=== PATIENT | female | born 1980 | race Caucasian/White ===

== ENCOUNTER 2019-07-12 06:37 | Day surgery (SDC) | payer OTHER ==
[2019-07-12] MEDS ORDERED: Lactated Ringers 1,000 ML IV SCH (07:00)
[2019-07-12] MEDS ORDERED: Lactated Ringers 1,000 ML IV ONE ×2 (07:05→09:13)
[2019-07-12] MEDS ORDERED: Lugol's Solution ONE (07:35)
[2019-07-12] MEDS ORDERED: SUBLIMAZE 100 MCG/2 ML ONE (08:30)
[2019-07-12] MEDS ORDERED: DIPRIVAN 200 MG/20 ML IV ONE (08:30)
[2019-07-12] MEDS ORDERED: TORAdol 30 mg Injection ONE (08:36)
[2019-07-12] MEDS ORDERED: Decadron 4 MG INJ ONE (08:36)
[2019-07-12] MEDS ORDERED: XYLOCAINE 1%/Epi 1:100000 MDV 20 ML ONE (08:36)
[2019-07-12] MEDS ORDERED: Zofran 4 MG/2 ML VIAL ONE (08:36)
[2019-07-12] MEDS ORDERED: Ephedrine Sulfate 50 MG/ML ONE (09:08)
[2019-07-12] MEDS ORDERED: ROBINUL ONE (09:13)
[2019-07-12 10:29] VITALS: BP 131/76; PULSE 86; O2SAT 99
--- NOTE | 2019-07-13 08:27 | OP ---
SURGERY DATE/TIME: 07/12/2019 0856 PREOPERATIVE DIAGNOSIS: Severe cervical dysplasia DANICA-3. POSTOPERATIVE DIAGNOSIS: Severe cervical dysplasia DANICA-3. PROCEDURE: Colposcopically-directed LEEP procedure. SURGEON: Kevin Dodson D.O. HVAC TECHNICIAN RESIDENTIAL: tool technician. ANESTHESIA: General. ESTIMATED BLOOD LOSS: Minimal. COMPLICATIONS: None. INDICATIONS: The risks, benefits, indications and alternatives of the procedure were reviewed with the patient prior to procedure. The patient understood the risk of infection, bleeding, bowel injury, bladder injury, ureteral injury, cervical incompetence, pelvic infection, anorgasmia, labor and possible miscarriage associated with the surgery and desires to have this surgery as a possible need to alleviate her current medical condition. DESCRIPTION OF PROCEDURE AND FINDINGS: At this point the patient is taken to the operating room, given general sedation, placed in dorsal lithotomy position. Prepped and draped in usual sterile fashion. A coated speculum is then placed in the patient's vagina and the cervix is then injected circumferentially with 1% lidocaine with epinephrine. Approximately 8 cc of lidocaine with epinephrine was used at 12:00, 3:00, 6:00 and 9:00 position. From this point under colposcopic guidance, the loop instrument was then used to excise the ectocervical tissue from a right to left motion for a depth approximately 3 to 5 mm of ectocervical tissue was excised without complication. After the ectocervical tissue was excised, an additional 2 to 3 mm of endocervical tissue was excised in similar fashion. From this point the loop gear hobber operator ball was placed on the surface of the cervix to coagulate any residual bleeding. At this point hemostasis was obtained. From this point Monsel solution was placed on the surface of the cervix to further hemostasis. From this point all instruments were removed from the patient's vaginal region. The patient was then taken out of the dorsal lithotomy position, was taken out of anesthesia and was then taken to the recovery room in stable condition. All instruments and laps were accounted for x2.
== END 2019-07-12 10:35 | disposition home or self-care (01) ==
LOC: SDC 06:37
PROVIDERS: ATTEND Obstetrics & Gynecology
DX: D06.9 Carcinoma in situ of cervix, unspecified (principal)
CPT/HCPCS: 57460; 84703; 88305; J1100; J1885; J2405; J2704; J3010; A9270-GY

== ENCOUNTER 2019-09-06 13:50 | Observation (INO) | payer OTHER ==
[2019-09-13] MEDS ORDERED: Lactated Ringers 1,000 ML IV ONE ×3 (07:17→11:33)
[2019-09-13] MEDS: Lactated Ringers 1,000 ML IV SCH ×2 (08:24→15:35)
[2019-09-13] MEDS ORDERED: CEFAZOLIN 2 GM-D5W BAG** 2 GM/50 ML ML IV SCH (08:30)
[2019-09-13 08:38] LABS: Hematocrit 41.1 % (35-47); Hemoglobin 13.8 gm/dl (12.0-16.0)
[2019-09-13 09:28] LABS: ABO TYPING A; Antibody Screen NEGATIVE (NEGATIVE); RH TYPING POSITIVE
[2019-09-13] MEDS ORDERED: DIPRIVAN 200 MG/20 ML IV ONE (09:46)
[2019-09-13] MEDS ORDERED: Quelicin Fliptop 200 MG/10 ML ONE (09:46)
[2019-09-13] MEDS ORDERED: Zemuron 100 MG/10 ML ONE ×2 (09:46→11:02)
[2019-09-13] MEDS ORDERED: SUBLIMAZE 100 MCG/2 ML ONE ×2 (09:47→12:16)
[2019-09-13] MEDS ORDERED: Decadron 4 MG INJ ONE (11:49)
[2019-09-13] MEDS ORDERED: BRIDION 200MG/2ML IV ONE (11:49)
[2019-09-13] MEDS ORDERED: TORAdol 30 mg Injection ONE (11:49)
[2019-09-13] MEDS ORDERED: Zofran 4 MG/2 ML VIAL ONE (11:49)
[2019-09-13] MEDS ORDERED: DILAUDID 2 MG INJECTION ONE (12:08)
[2019-09-13] MEDS ORDERED: Compazine 10 MG/2 ML ONE (12:09)
[2019-09-13] MEDS ORDERED: MORPHINE SULFATE 2 MG INJ IV PRN (12:57)
[2019-09-13] MEDS ORDERED: MORPHINE SULFATE 4 MG INJ IV PRN (12:57)
[2019-09-13] MEDS ORDERED: Zofran 4 MG/2 ML VIAL IV PRN (13:13)
[2019-09-13] MEDS: Reglan 10 MG/2 ML IV SCH ×2 (13:34→22:35)
[2019-09-13 14:36] LABS: Appearance CLEAR (CLEAR); Bilirubin NEGATIVE (NEGATIVE); Blood NEGATIVE Ery/ul (0-5); Epithelial Cells RARE /HPF (FEW); Glucose NEGATIVE (NEGATIVE); Ketones NEGATIVE (NEGATIVE); Leukocyte Esterase NEGATIVE (NEGATIVE); Mucus SLIGHT /HPF (NEGATIVE); Nitrite NEGATIVE (NEGATIVE); Protein,Urine Dip NEGATIVE (Negative); Specific Gravity 1.015 (1.005-1.025); Urobilinogen NEGATIVE mg/dL (0-1); WBC 0-2 /HPF (0-5)
[2019-09-13] MEDS: CEFAZOLIN 2 GM-D5W BAG** 2 GM/50 ML ML IV SCH (15:36)
[2019-09-13 18:39] LABS: Absolute Neutrophil Ct (ANC) 16.11 (1.4-6.9); Basophil (Absolute #) 0 (0-0.4); Eosinophil % 0.1 % (0.00-5.0); Eosinophil (Absolute #) 0.01 (0-0.5); Hematocrit 39.4 % (35-47); Hemoglobin 12.9 gm/dl (12.0-16.0); Lymphocytes % 4.6 % (24.0-44.0); Mean Cell Volume 98.3 fl (78-100); Mean Corpuscular Hemoglobin 32.2 pg (26-32); Mean Corpuscular Hgb Concent. 32.7 g/dl (32-36); Mean Platelet Volume 9.9 fl (7.5-11.0); Monocyte (Absolute #) 0.32 (0.0-1.3); Monocytes % 1.9 % (0.0-12.0); Neutrophil % 93.4 % (36.0-66.0); Platelet Count 242 K/mm3 (150-450); Red Blood Count 4.01 M/mm3 (4.1-5.4); Red Cell Distribution Width 13.3 % (11.5-14.0); White Blood Count 17.2 K/mm3 (4.0-10.5)
[2019-09-13] MEDS: TORAdol 30 mg Injection IV SCH (18:49)
[2019-09-14] MEDS: TORAdol 30 mg Injection IV SCH ×2 (00:45→05:56)
[2019-09-14] MEDS: CEFAZOLIN 2 GM-D5W BAG** 2 GM/50 ML ML IV SCH (00:45)
[2019-09-14] MEDS: Lactated Ringers 1,000 ML IV SCH (01:57)
[2019-09-14 05:07] LABS: ALBUMIN 3.5 g/dL (3.5-5.0); ALKALINE PHOSPHATASE 76 U/L (38-126); ANION GAP 7.3 MEQ/L (5-15); BLOOD UREA NITROGEN 5 mg/dL (7-17); CHLORIDE 106 mmol/L (98-107); Calcium 8.6 mg/dL (8.4-10.2); Carbon Dioxide 29 mmol/L (22-30); Creatinine 1 0.69 mg/dL (0.52-1.04); Glucose 120 mg/dL (74-106); Potassium 4.4 mmol/L (3.5-5.1); SGOT/AST 19 U/L (14-36); SGPT/ALT 15 U/L (0-35); SODIUM 138 mmol/L (137-145); Total Protein 6.5 g/dL (6.3-8.2)
[2019-09-14 05:14] LABS: Absolute Neutrophil Ct (ANC) 14.06 (1.4-6.9); BASOPHIL % 0.1 % (0.0-0.4); Basophil (Absolute #) 0.01 (0-0.4); Eosinophil % 0.1 % (0.00-5.0); Eosinophil (Absolute #) 0.01 (0-0.5); Hematocrit 36.3 % (35-47); Hemoglobin 11.7 gm/dl (12.0-16.0); Lymphocyte (Absolute #) 1.73 (1.0-4.6); Lymphocytes % 10.4 % (24.0-44.0); Mean Cell Volume 98.6 fl (78-100); Mean Corpuscular Hemoglobin 31.8 pg (26-32); Mean Corpuscular Hgb Concent. 32.2 g/dl (32-36); Mean Platelet Volume 10.4 fl (7.5-11.0); Monocyte (Absolute #) 0.89 (0.0-1.3); Monocytes % 5.3 % (0.0-12.0); Neutrophil % 84.1 % (36.0-66.0); Platelet Count 252 K/mm3 (150-450); Red Blood Count 3.68 M/mm3 (4.1-5.4); Red Cell Distribution Width 13.3 % (11.5-14.0); White Blood Count 16.7 K/mm3 (4.0-10.5)
[2019-09-14] MEDS: Reglan 10 MG/2 ML IV SCH ×2 (05:56→14:49)
[2019-09-14] MEDS ORDERED: Colace 100 MG PO PRN (08:33)
[2019-09-14] MEDS ORDERED: Mylicon 80MG PO PRN (08:33)
[2019-09-14] MEDS ORDERED: PERCOCET TABLET 5/325MG PO PRN (09:05)
[2019-09-14] MEDS ORDERED: Sodium Chloride 0.9% 10 ML FLUSH Syringe IV PRN (09:15)
[2019-09-14] MEDS ORDERED: Mylicon 80MG PO SCH (10:00)
[2019-09-14] MEDS ORDERED: NON-FORMULARY ITEM (Citalopram Hydrobromide [Celexa] 40 MG) PO SCH (10:00)
[2019-09-14] MEDS: MOTRIN 600 MG PO SCH ×2 (10:12→14:48)
--- NOTE | 2019-09-14 13:45 | OP ---
SURGERY DATE/TIME: 09/13/2019 1017 PREOPERATIVE DIAGNOSIS: Cervical cancer Stage 1A. POSTOPERATIVE DIAGNOSIS: Cervical cancer Stage 1A. PROCEDURES: 1) Total abdominal hysterectomy. 2) Bilateral salpingectomy. SURGEON: Kevin Dodson D.O. A AND P TECHNICIAN: Jah Mejia aerospace technician. ANESTHESIA: General. ESTIMATED BLOOD LOSS: 350 cc. COMPLICATIONS: None. INDICATIONS: The risks, benefits, indications and alternatives of the procedure were reviewed with the patient prior to procedure. The patient understood the risk of infection, bleeding, bowel injury, bladder injury, ureteral injury, uterine perforation, pelvic infection as well as thromboembolic disorder. The patient understands all of these risks and desires to have this procedure as a possible need to alleviate her current medical condition. DESCRIPTION OF PROCEDURE AND FINDINGS: From this point the patient is taken to the operating room. She was placed in supine position, given general anesthesia and was prepared and draped in usual sterile fashion. A Pfannenstiel incision was made approximately 2 cm above the symphysis pubis and extended sharply to the rectus fascia. The fascia was then incised bilaterally with curved Jurado scissors and the muscles of the anterior abdominal wall in the midline by sharp and blunt dissection. The peritoneum was then grasped between two pickups elevated and entered sharply with Metzenbaum scissors. The pelvis is then examined and noted to have a normal sized uterus approximately 8 weeks size. An [place] Otto-O'Andersen retractor was placed into the incision and the bowel packed away with moist laparotomy sponges. Some Rohit clamps were placed on the cornua and used for retraction. From this point the Impact LigaSure was used to clamp, coagulate and cut through the infundibulopelvic ligament through the round ligament towards the uterine vessel, this was accomplished on both sides. At this point the anterior lip of the broad ligament was incised along the bladder reflection to the midline on both sides. The bladder was then gently dissected off the lower uterine segment and the cervix with a sponge stick. The infundibulopelvic ligament on both sides was then doubly clamped, transected and suture ligated with 0 Vicryl suture. Hemostasis was assured. The uterine artery skeletonized bilaterally, clamped with Meg clamp transected and suture ligated with 0 Vicryl suture. Again hemostasis was assured. The uterosacral ligaments were clamped on both sides, transected and suture ligated in similar fashion. The cervix and the uterus were then amputated with the cautery. The vaginal cuff angles were closed with a figure-of-8 suture of 0 Vicryl and were transfixed to the ipsilateral Cardinal and uterosacral ligament. The reminder of the vaginal cuff was closed with a series of interrupted 0 Vicryl suture with figure-of-8 sutures. Hemostasis was assured. The pelvis was then irrigated copiously with warm normal saline. From this point the bilateral fallopian tubes were then brought up using the [place]i forceps and the Impact LigaSure placed on the mesosalpinx where they were both excised without complication. The bilateral ovaries appeared to be within normal limits and were not removed during the procedure. All lap, needle, sponge and instruments were removed from the patient's abdomen. The fascia was then closed with running 0 Vicryl. Hemostasis was assured. The subcutaneous tissue closed with 2-0 Vicryl suture and the skin was closed with absorbable dev called Insorb. Sponge, lap, needle and instrument counts were correct x2. The patient was then taken to the recovery room in stable condition.
[2019-09-14 13:48] VITALS: BP 114/54; PULSE 100; O2SAT 94
[2019-09-14] MEDS ORDERED: Sodium Chloride 0.9% 10 ML FLUSH Syringe IV SCH (14:00)
--- NOTE | 2019-09-14 15:03 | PCM.DS ---
Discharge Summary Date of Admission: 09/13/19 06:47 Date of Discharge: september 14, 2019 Admitting Physician: JUDIT CAT DO Primary Care Provider: NO FAMILY DOCTOR Allergies Allergies bee venom protein (honey bee) Allergy (Severe, Verified 09/13/19 08:17) Swelling naproxen [From Aleve] Allergy (Severe, Verified 09/13/19 08:17) Swelling of Tongue and Lips cats Allergy (Severe, Uncoded 09/13/19 08:17) Swelling itching Hospital Summary - Vitals & Intake/Output Vital Signs: Vital Signs Temperature 98.9 F 09/14/19 12:00 Pulse Rate 100 H 09/14/19 12:00 Respiratory Rate 12 09/14/19 12:00 Blood Pressure 114/54 09/14/19 12:00 O2 Sat by Pulse Oximetry 94 L 09/14/19 12:00 Intake & Output: Intake & Output 09/12/19 09/13/19 09/14/19 09/15/19 11:59 11:59 11:59 11:59 Intake Total 2477 240 Output Total 2750 Balance -273 240 Weight 93.5 kg 93.5 kg - Lab Result Diagrams: 09/14/19 04:10 09/14/19 04:10 Lab Results-Last 24 Hrs: Lab Results-Last 24 Hours 09/13/19 09/14/19 09/14/19 Range/Units 18:19 04:10 04:10 WBC 17.2 H 16.7 H (4.0-10.5) K/mm3 RBC 4.01 L 3.68 L (4.1-5.4) M/mm3 Hgb 12.9 11.7 L (12.0-16.0) gm/dl Hct 39.4 36.3 (35-47) % MCV 98.3 98.6 (78-100) fl MCH 32.2 H 31.8 (26-32) pg MCHC 32.7 32.2 (32-36) g/dl RDW 13.3 13.3 (11.5-14.0) % Plt Count 242 252 (150-450) K/mm3 MPV 9.9 10.4 (7.5-11.0) fl Gran % 93.4 H 84.1 H (36.0-66.0) % Eos # (Auto) 0.01 0.01 (0-0.5) Absolute Lymphs (auto) 0.80 L 1.73 (1.0-4.6) Absolute Monos (auto) 0.32 0.89 (0.0-1.3) Lymphocytes % 4.6 L 10.4 L (24.0-44.0) % Monocytes % 1.9 5.3 (0.0-12.0) % Eosinophils % 0.1 0.1 (0.00-5.0) % Basophils % 0.0 0.1 (0.0-0.4) % Absolute Granulocytes 16.11 H 14.06 H (1.4-6.9) Basophils # 0 0.01 (0-0.4) Sodium 138 (137-145) mmol/L Potassium 4.4 (3.5-5.1) mmol/L Chloride 106 (98-107) mmol/L Carbon Dioxide 29 (22-30) mmol/L Anion Gap 7.3 (5-15) MEQ/L BUN 5 L (7-17) mg/dL Creatinine 0.69 (0.52-1.04) mg/dL Estimated GFR > 60.0 ML/MIN Glucose 120 H (74-106) mg/dL Calcium 8.6 (8.4-10.2) mg/dL Total Bilirubin 0.50 (0.2-1.3) mg/dL AST 19 (14-36) U/L ALT 15 (0-35) U/L Alkaline Phosphatase 76 (38-126) U/L Serum Total Protein 6.5 (6.3-8.2) g/dL Albumin 3.5 (3.5-5.0) g/dL Micro Results-Entire Visit: Microbiology 09/13/19 10:24 Urine Culture - Preliminary Catherized NO GROWTH TO DATE - Procedures and Test Procedures and Tests throughout Hospitalization: Therapy Orders & Screens 09/13/19 13:05 Incentive Spirometry UD Comment: Diagnosis: uterine cancer stage 1 09/13/19 15:53 OT Screen per Nursing Assess Comment: Protocol Order Physician Instructions: Greater than 3 points order OT Admission Screening Reason For Exam: Triggered on Admission Diagnosis: S/P SEPIDEH BRENTON SALPINECTOMY Open Wound/Cellutlitis/Pressure Ulcers: Yes Acute Fx/ORIF/Change in wt bearing status: No Severe MUSCULOSKELETAL pain: No ADL Dysfunction: No Acute CVA w/Hemiparesis/Hemiplegia: No Decreased Functional Mobility/Strength: No Sprain/Strain: No Acute Post-op Mobility Dysfunction: No Total Points: 5 PT Screen per Nursing Assess Comment: Protocol Order Physician Instructions: Greater than 3 points order PT Admission Screenin Reason For Exam: Triggered on Admission Diagnosis: S/P SEPIDEH BRENTON SALPINECTOMY Open Wound/Cellutlitis/Pressure Ulcers: Yes Acute Fx/ORIF/Change in wt bearing status: No Severe MUSCULOSKELETAL pain: No ADL Dysfunction: No Acute CVA w/Hemiparesis/Hemiplegia: No Decreased Functional Mobility/Strength: No Sprain/Strain: No Acute Post-op Mobility Dysfunction: No Total Points: 5 Smoking Cessation Education ONCE Comment: Diagnosis: S/P SEPIDEH BRENTON SALPINECTOMY Smoking Status: Current every day smoker How long have you smoked: 23yrs Have you smoked in the past 12 months: Yes Approximately how many cigarettes per day: 1/2 PPD Do you dip or chew tobacco: No 09/13/19 21:26 Oxygen Nasal Cannula 2 lpm Comment: Diagnosis: S/P SEPIDEH BRENTON SALPINECTOMY Respiratory Therapy Assessment DAILY Comment: Diagnosis: S/P SEPIDEH BRENTON SALPINECTOMY - Discharge Disposition: Home, Self-Care Condition: Stable Prescriptions: New RX: Ibuprofen 600 mg PO Q6H PRN PRN #46 tablet PRN Reason: Pain Oxycodone HCl/Acetaminophen [Percocet 5-325 mg Tablet] 2 each PO Q6HPRN PRN # 20 tablet MDD 8 PRN Reason: Pain RX: Clindamycin HCl [Cleocin HCl] 300 mg PO BID #10 capsule Continue RX: Citalopram Hydrobromide [ceLEXa] 40 mg PO DAILY RX: Cholecalciferol (Vitamin D3) [Vitamin D] 2,000 unit PO DAILY Instructions: Hysterectomy (DC) Follow up with: JUDIT CAT DO [ACTIVE STAFF] - 09/28/19 11:00 am
[2019-09-14] MEDS ORDERED: ceLEXa 20 MG PO SCH (19:00)
[2019-09-14] MEDS ORDERED: VITAMIN D PO SCH (19:00)
== END 2019-09-14 14:45 | disposition home or self-care (01) ==
LOC: OBSVTOIN 09-13 06:47 → MED SURG 09-13 06:47 → INTOOBSV 09-13 06:47
PROVIDERS: ADMIT Obstetrics & Gynecology; ATTEND Obstetrics & Gynecology
PROC: 0UT90ZZ Resection of Uterus, Open Approach (ICD-10-PCS; principal; 2019-09-13)
PROC: 0UT70ZZ Resection of Bilateral Fallopian Tubes, Open Approach (ICD-10-PCS; 2019-09-13)
DX: C53.9 Malignant neoplasm of cervix uteri, unspecified (principal); Z09 Encounter for follow-up examination after completed treatment for conditions other than malignant neoplasm
CPT/HCPCS: 36415; 58150; 80053; 81001; 84703; 85014; 85018; 85025; 86850; 86900; 86901; 87086; 94760; G0378; J0330; J0690; J1100; J1170; J1885; J2270; J2405; J2704; J3010; A9270-GY